=== PATIENT | female | born 1940 | race Caucasian/White ===

== ENCOUNTER 2021-11-24 14:22 | Day surgery (SDC) | payer MEDICARE, OTHER ==
[2021-11-24] MEDS ORDERED: Sodium Chloride 0.9% 10 ML FLUSH Syringe IJ ONE (14:23)
[2021-11-24] MEDS ORDERED: Depo-Medrol 40 MG/ML IM ONE (14:23)
[2021-11-24] MEDS ORDERED: DIPRIVAN 200 MG/20 ML IV ONE (17:02)
[2021-11-24] MEDS ORDERED: Lactated Ringers 1,000 ML IV ONE (17:25)
--- NOTE | 2021-11-24 19:07 | XRAY ---
Indication: Right L4-S1 transforaminal IFEOMA. Intraoperative fluoroscopy provided for 36 seconds. 4 digital spot image submitted for interpretation demonstrates posterior needle tips projecting over the right L4 and L5 nerve roots. Small amount of contrast injected for needle tip placement. Correlate with intraoperative findings/report.
--- NOTE | 2021-11-25 09:23 | XRAY ---
36 seconds fluoroscopy time in surgery for right L4-S1 transforaminal IFEOMA.
== END 2021-11-24 17:30 | disposition home or self-care (01) ==
LOC: SDC-PAIN 14:22
PROVIDERS: ATTEND Psychiatry & Neurology Pain Medicine
DX: M54.16 Radiculopathy, lumbar region (principal); E78.5 Hyperlipidemia, unspecified; Z79.899 Other long term (current) drug therapy
CPT/HCPCS: 64483; 64484; 72100; 77003; J1030; J2704; Q9966